=== PATIENT | female | born 1970 ===

== ENCOUNTER 2019-04-08 08:17 | Day surgery (SDC) | payer BC ==
[~2019-04-08 08:17] MED LIST: CLARITIN10 MG PO; Estradiol1 MG PO; Glucophage1000 MG PO; IBUP400 PO; LEVSOD125 PO; [UNRECOGNIZED DRUG - OTHER] PO
--- NOTE | 2019-04-08 09:40 | NUR ---
04/08/19 0940 Nilda Garcia (Shaniqua O2 INCREASED TO 5L/MIN APPROX 0930. SATURATION WNL AFTER INCREASE.
== END 2019-04-08 10:10 | disposition home or self-care (01) ==
LOC: ORSCSDS 08:17
PROVIDERS: Surgery
PROC: 0DB68ZX Excision of Stomach, Via Natural or Artificial Opening Endoscopic, Diagnostic (ICD-10-PCS; principal; 2019-04-08 09:30)
PROC: 0DB88ZX Excision of Small Intestine, Via Natural or Artificial Opening Endoscopic, Diagnostic (ICD-10-PCS; principal; 2019-04-08 09:30)
PROC: 0DB48ZX Excision of Esophagogastric Junction, Via Natural or Artificial Opening Endoscopic, Diagnostic (ICD-10-PCS; principal; 2019-04-08 09:30)
DX: R13.10 Dysphagia, unspecified (principal); K21.0 Gastro-esophageal reflux disease with esophagitis; R11.2 Nausea with vomiting, unspecified; Z80.0 Family history of malignant neoplasm of digestive organs; E03.9 Hypothyroidism, unspecified; E11.9 Type 2 diabetes mellitus without complications; F41.9 Anxiety disorder, unspecified; E66.9 Obesity, unspecified; Z68.32 Body mass index [BMI] 32.0-32.9, adult; Z79.84 Long term (current) use of oral hypoglycemic drugs; F17.210 Nicotine dependence, cigarettes, uncomplicated; Z79.899 Other long term (current) drug therapy
CPT/HCPCS: 82947; 88305; 88312; 88342; J2704; J7120